=== PATIENT | female | born 1995 | race American Indian/Alaskan Native ===

== ENCOUNTER 2022-06-12 12:16 | Outpatient (CLI) | payer OTHER ==
[2022-06-12 12:47] VITALS: BP 120/81
--- NOTE | 2022-06-12 15:20 | Ultrasound Report ---
ULTRASOUND BIOPHYSICAL PROFILE INDICATION / CLINICAL INFORMATION: well being. Clinical gestational age of 39 weeks and 4 days. COMPARISON: None available. FINDINGS: Single live intrauterine . MEASUREMENTS: - Biparietal Diameter = 9.6 cm = 39 weeks 1 day - Head Circumference = 34.1 cm = 39 weeks 2 days - Abdominal Circumference = 33.6 cm = 37 weeks 4 days - Femur Length = 7.8 cm = 39 weeks 4 days - Estimated Weight (in grams, if calculated): 3493 TOTAL ULTRASOUND AGE: 38 weeks 6 days. BIOPHYSICAL PROFILE: BREATHING MOVEMENT = 2 GROSS BODY MOVEMENT = 2 TONE = 2 QUALITATIVE AMNIOTIC FLUID VOLUME = 2 TOTAL BIOPHYSICAL SCORE = 8/8 AMNIOTIC FLUID INDEX (cm) = 12.1 PRESENTATION: Cephalic. HEART RATE (beats per minute): 145 IMPRESSION: 1. Single live intrauterine with ultrasound age of 38 weeks and 6 days. Estimated deborah ght of 3493 g. 2. biophysical profile = 8/8 3. Amniotic fluid index is within normal limits, measuring 12.1 cm. Signer Name: Saad Vicente MD Signed: 06/12/2022 3:16 PM Workstation Name: [employer]
== END 2022-06-12 15:37 | disposition home or self-care (01) ==
LOC: TRG 12:16 → APU 12:18 → TRG 15:37
PROVIDERS: ATTEND Obstetrics & Gynecology Gynecology
DX: O26.893 Other specified pregnancy related conditions, third trimester (principal); R10.9 Unspecified abdominal pain; Z3A.39 39 weeks gestation of pregnancy
CPT/HCPCS: 59025; 76816; 76819

== ENCOUNTER 2022-06-13 15:01 | Inpatient (IN) | payer OTHER ==
[2022-06-13] MEDS ORDERED: LOPERAMIDE 2 MG CAP PO PRN (19:40)
[2022-06-13] MEDS ORDERED: ONDANSETRON 4 MG/2 ML INJ IV PRN (19:40)
[2022-06-13] MEDS ORDERED: MINERAL OIL 30 ML ORAL LIQD PO PRN (19:40)
[2022-06-13] MEDS ORDERED: LIDOCAINE (2%) 20 MG/1 ML VIAL 20 ML MDV INFILTRATI ONE (19:40)
[2022-06-13] MEDS ORDERED: miSOPROStol 200 MCG TAB PR PRN (19:40)
[2022-06-13] MEDS ORDERED: ePHEDrine SULFATE 50 MG/1 ML INJ IV PRN (19:40)
[2022-06-13] MEDS ORDERED: OXYTOCIN 10 UNIT/1 ML INJ IM PRN (19:40)
[2022-06-13] MEDS ORDERED: AMPICILLIN/NS 2 GM/100 ML 2 GM/100 ML BAG IV ONE (19:40)
[2022-06-13] MEDS ORDERED: TERBUTALINE 1 MG/1 ML INJ SUB-Q PRN (19:40)
[2022-06-13] MEDS ORDERED: NALOXONE 0.4 MG/1 ML INJ IV PRN (19:40)
[2022-06-13] MEDS ORDERED: BUTORPHANOL 2 MG/1 ML INJ IV PRN (19:40)
[2022-06-13] MEDS ORDERED: NalbUPHINE 10 MG/1 ML INJ IV PRN (19:40)
[2022-06-13] MEDS ORDERED: DINOPROSTONE 10 MG VAG SUPP VG ONE (19:40)
[2022-06-13] MEDS ORDERED: ACETAMINOPHEN 325 MG TAB PO PRN (19:40)
[2022-06-13] MEDS ORDERED: CARBOPROST TROMETHAMINE 250 MCG/1 ML INJ IM PRN (19:40)
[2022-06-13] MEDS ORDERED: LACTATED RINGERS 1,000 ML IV SCH (19:45)
--- NOTE | 2022-06-13 19:52 | History and Physical Report ---
History of Present Illness Date of examination: 06/13/22 Date of admission: 06/13/22 15:01 Chief complaint: Presents for a scheduled induction of labor due to Proteinuria. Denies HAs, visual changes, N&V, and epigastic pain. History of present illness: Care at [facility]; course complicated by +Trichomonas (treated with Negative KVNG); a abnormal 1hour GTT (followed by a normal 3 hour GTT); and persistent Proteinuria throughout the 3rd trimester (24 hour urine 540 on 05/29/22). Co-managed with [facility]. Past History Past Medical History: no pertinent history Past Surgical History: breast surgery [employer] History: trichomonas Family/Genetic History: diabetes (PGM and MGM) Social history: no significant social history - Obstetrical History Expected Date of Delivery: 06/15/22 Actual Gestation: 39 Week(s) 5 Day(s) : 1 Medications and Allergies Allergies Allergy/AdvReac Type Severity Reaction Status Date / Time Latex, Natural Rubber AdvReac Severe Rash Verified 06/12/22 12:44 Active Meds: Active Medications Acetaminophen (Acetaminophen 325 Mg Tab) 650 mg PO Q4H PRN PRN Reason: Pain, Mild (1-3) Butorphanol Tartrate (Butorphanol 2 Mg/1 Ml Inj) 2 mg IV Q2H PRN PRN Reason: Pain , Severe (7-10) Carboprost Tromethamine (Carboprost Tromethamine 250 Mcg/1 Ml Inj) 250 mcg IM ONCE PRN PRN Reason: Uterine Bleeding Dinoprostone (Dinoprostone 10 Mg Vag Supp) 10 mg VG ONCE ONE Stop: 06/13/22 19:41 Ephedrine Sulfate (Ephedrine Sulfate 50 Mg/1 Ml Inj) 10 mg IV Q2M PRN PRN Reason: Hypotension Lactated Ringer's (Lactated Ringers) 1,000 mls @ 125 mls/hr IV DIRECT SOL Oxytocin/Sodium Chloride (Pitocin/Ns 30 Unit/500ml) 30 units in 500 mls @ 40 mls/hr IV TITR SOL; Protocol Ampicillin Sodium (Ampicillin/Ns 2 Gm/100 Ml) 2 gm in 100 mls @ 100 mls/hr IV ONCE ONE; Protocol Stop: 06/13/22 20:39 Ampicillin Sodium (Ampicillin/Ns 1 Gm/50 Ml) 1 gm in 50 mls @ 100 mls/hr IV Q4H SOL; Protocol Lidocaine (Lidocaine (2%) 20 Mg/1 Ml Vial 20 Ml Mdv) 20 ml INFILTRATI ONCE ONE Stop: 06/13/22 19:41 Loperamide HCl (Loperamide 2 Mg Cap) 2 mg PO ONCE PRN PRN Reason: give with Hemabate Mineral Oil (Mineral Oil 30 Ml Oral Liqd) 30 ml PO QHS PRN PRN Reason: Constipation Misoprostol (Misoprostol 200 Mcg Tab) 800 mcg KS ONCE PRN PRN Reason: Uterine Bleeding Nalbuphine HCl (Nalbuphine 10 Mg/1 Ml Inj) 10 mg IV Q2H PRN PRN Reason: Pain, Moderate (4-6) Naloxone HCl (Naloxone 0.4 Mg/1 Ml Inj) 0.1 mg IV Q2MIN PRN PRN Reason: Res Rate </= 8 or 02 SAT < 92% Ondansetron HCl (Ondansetron 4 Mg/2 Ml Inj) 4 mg IV Q8H PRN PRN Reason: Nausea And Vomiting Oxytocin (Oxytocin 10 Unit/1 Ml Inj) 10 unit IM ONCE PRN PRN Reason: Uterine Bleeding Terbutaline Sulfate (Terbutaline 1 Mg/1 Ml Inj) 0.25 mg SUB-Q ONCE PRN PRN Reason: Hyperstimulation/Hypertonicity Review of Systems All systems: negative - Vital Signs Vital signs: Vital Signs Temp Resp Pulse Ox 98.2 F 14 100 06/13/22 19:17 06/13/22 19:17 06/13/22 19:17 Temp Pulse Resp BP Pulse Ox 98.2 F 78 14 114/71 100 06/13/22 19:17 06/13/22 19:40 06/13/22 19:17 06/13/22 19:40 06/13/22 19:17 - Physical Exam Breasts: Positive: normal Cardiovascular: Regular rate Lungs: Positive: Clear to auscultation, Normal air movement Abdomen: Positive: normal appearance, soft, normal bowel sounds Genitourinary (Female): Positive: normal external genitalia, normal perenium Vagina: Positive: normal moisture Uterus: Positive: enlarged Anus/Rectum: Positive: normal perianal skin Extremities: Positive: normal - Obstetrical FHR: category 1 Uterine Contraction Monitor Mode: External Cervical Dilatation: 3 (intact) Cervical Effacement Percentage: 50 station: -4 Uterine Contraction Pattern: Absent Uterine Tone Measurement Phase: Resting Results All other labs normal. Assessment and Plan A: IUP @ 39 5/7 Weeks Category I Tracing Maternal Obesity Proteinuria GBS Unknown P: Admit to L&D Per Routine Orders PIH Labs Cervidil Induction GBS Prophylaxis
[2022-06-13] MEDS ORDERED: OXYTOCIN DRIP 30 UNITS/500 ML BAG IV SCH (20:00)
[2022-06-13 20:29] LABS: Red Blood Count 3.89 M/mm3 (3.65-5.03)
[2022-06-13 20:30] LABS: Hematocrit 33.6 % (30.3-42.9); Hemoglobin 11.1 gm/dl (10.1-14.3); Mean Corpuscular HGB Conc 33 % (30-34); Mean Corpuscular Volume 86 fl (79-97); Platelet Count 280 K/mm3 (140-440); Red Cell Distribution Width 13.9 % (13.2-15.2)
[2022-06-13 21:39] LABS: Alanine Aminotransferase 12 units/L (7-56); Uric Acid 6.5 mg/dL (3.5-7.6)
[2022-06-13] MEDS ORDERED: AMPICILLIN/NS 1 GM/50 ML 1 GM/50 ML BAG IV SCH (23:45)
--- NOTE | 2022-06-14 10:00 | Progress Note ---
Assessment and Plan A: IUP@ 39 6/7 wks GBS unknown Preeclampsia P: Continue monitoring Cervidil out @ 10 am GBS protocal in active labor Anticipate Subjective - Subjective Date of service: 06/14/22 Principal diagnosis: IUP@39 6/7 wks Patient reports: movement normal, contractions Objective - Vital Signs Vital Signs: Vital Signs - 12hr 06/13/22 06/13/22 06/13/22 22:08 22:13 22:18 Temperature Pulse Rate 78 81 79 Respiratory Rate Blood Pressure Blood Pressure [Left] O2 Sat by Pulse 98 97 97 Oximetry O2 Sat by Pulse Oximetry [ Bilateral] 06/13/22 06/13/22 06/13/22 22:23 22:28 22:33 Temperature Pulse Rate 81 80 82 Respiratory Rate Blood Pressure Blood Pressure [Left] O2 Sat by Pulse 96 97 96 Oximetry O2 Sat by Pulse Oximetry [ Bilateral] 06/13/22 06/13/22 06/13/22 22:38 22:41 22:43 Temperature Pulse Rate 85 82 95 H Respiratory Rate Blood Pressure 118/56 Blood Pressure [Left] O2 Sat by Pulse 96 98 Oximetry O2 Sat by Pulse Oximetry [ Bilateral] 06/13/22 06/13/22 06/13/22 22:48 22:53 22:58 Temperature Pulse Rate 74 76 76 Respiratory Rate Blood Pressure Blood Pressure [Left] O2 Sat by Pulse 96 97 97 Oximetry O2 Sat by Pulse Oximetry [ Bilateral] 06/13/22 06/13/22 06/13/22 23:03 23:08 23:13 Temperature Pulse Rate 80 76 77 Respiratory Rate Blood Pressure Blood Pressure [Left] O2 Sat by Pulse 97 96 97 Oximetry O2 Sat by Pulse Oximetry [ Bilateral] 06/13/22 06/13/22 06/13/22 23:18 23:23 23:28 Temperature Pulse Rate 76 78 78 Respiratory Rate Blood Pressure Blood Pressure [Left] O2 Sat by Pulse 96 97 97 Oximetry O2 Sat by Pulse Oximetry [ Bilateral] 06/13/22 06/13/22 06/13/22 23:33 23:38 23:43 Temperature Pulse Rate 78 76 75 Respiratory Rate Blood Pressure Blood Pressure [Left] O2 Sat by Pulse 98 96 97 Oximetry O2 Sat by Pulse Oximetry [ Bilateral] 06/13/22 06/13/22 06/13/22 23:48 23:52 23:53 Temperature Pulse Rate 83 79 82 Respiratory Rate Blood Pressure Blood Pressure [Left] O2 Sat by Pulse 97 94 96 Oximetry O2 Sat by Pulse Oximetry [ Bilateral] 06/13/22 06/14/22 06/14/22 23:58 00:02 00:03 Temperature Pulse Rate 84 90 87 Respiratory Rate Blood Pressure Blood Pressure [Left] O2 Sat by Pulse 96 93 95 Oximetry O2 Sat by Pulse Oximetry [ Bilateral] 06/14/22 06/14/22 06/14/22 00:08 00:13 00:18 Temperature Pulse Rate 91 H 84 87 Respiratory Rate Blood Pressure Blood Pressure [Left] O2 Sat by Pulse 94 97 97 Oximetry O2 Sat by Pulse Oximetry [ Bilateral] 06/14/22 06/14/22 06/14/22 00:24 00:29 00:34 Temperature Pulse Rate 96 H 78 82 Respiratory Rate Blood Pressure Blood Pressure [Left] O2 Sat by Pulse 100 99 98 Oximetry O2 Sat by Pulse Oximetry [ Bilateral] 06/14/22 06/14/22 06/14/22 00:39 00:41 00:44 Temperature Pulse Rate 80 79 86 Respiratory Rate Blood Pressure 102/56 Blood Pressure [Left] O2 Sat by Pulse 98 98 Oximetry O2 Sat by Pulse Oximetry [ Bilateral] 06/14/22 06/14/22 06/14/22 00:49 00:54 00:59 Temperature Pulse Rate 78 74 87 Respiratory Rate Blood Pressure Blood Pressure [Left] O2 Sat by Pulse 98 99 99 Oximetry O2 Sat by Pulse Oximetry [ Bilateral] 06/14/22 06/14/22 06/14/22 01:04 01:09 01:14 Temperature Pulse Rate 88 75 78 Respiratory Rate Blood Pressure Blood Pressure [Left] O2 Sat by Pulse 98 98 98 Oximetry O2 Sat by Pulse Oximetry [ Bilateral] 06/14/22 06/14/22 06/14/22 01:19 01:24 01:29 Temperature Pulse Rate 79 89 87 Respiratory Rate Blood Pressure Blood Pressure [Left] O2 Sat by Pulse 98 97 98 Oximetry O2 Sat by Pulse Oximetry [ Bilateral] 06/14/22 06/14/22 06/14/22 01:34 01:39 01:44 Temperature Pulse Rate 84 82 80 Respiratory Rate Blood Pressure Blood Pressure [Left] O2 Sat by Pulse 96 98 96 Oximetry O2 Sat by Pulse Oximetry [ Bilateral] 06/14/22 06/14/22 06/14/22 01:49 01:54 01:59 Temperature Pulse Rate 80 80 84 Respiratory Rate Blood Pressure Blood Pressure [Left] O2 Sat by Pulse 97 98 97 Oximetry O2 Sat by Pulse Oximetry [ Bilateral] 06/14/22 06/14/22 06/14/22 02:04 02:09 02:14 Temperature Pulse Rate 78 76 82 Respiratory Rate Blood Pressure Blood Pressure [Left] O2 Sat by Pulse 99 97 97 Oximetry O2 Sat by Pulse Oximetry [ Bilateral] 06/14/22 06/14/22 06/14/22 02:19 02:24 02:29 Temperature Pulse Rate 84 75 79 Respiratory Rate Blood Pressure Blood Pressure [Left] O2 Sat by Pulse 97 97 96 Oximetry O2 Sat by Pulse Oximetry [ Bilateral] 06/14/22 06/14/22 06/14/22 02:34 02:39 02:41 Temperature Pulse Rate 75 77 75 Respiratory Rate Blood Pressure 125/74 Blood Pressure [Left] O2 Sat by Pulse 97 96 Oximetry O2 Sat by Pulse Oximetry [ Bilateral] 06/14/22 06/14/22 06/14/22 02:44 02:49 02:54 Temperature Pulse Rate 81 73 77 Respiratory Rate Blood Pressure Blood Pressure [Left] O2 Sat by Pulse 96 97 97 Oximetry O2 Sat by Pulse Oximetry [ Bilateral] 06/14/22 06/14/22 06/14/22 02:59 03:04 03:09 Temperature Pulse Rate 76 80 77 Respiratory Rate Blood Pressure Blood Pressure [Left] O2 Sat by Pulse 99 96 95 Oximetry O2 Sat by Pulse Oximetry [ Bilateral] 06/14/22 06/14/22 06/14/22 03:14 03:19 03:24 Temperature Pulse Rate 75 79 76 Respiratory Rate Blood Pressure Blood Pressure [Left] O2 Sat by Pulse 96 96 97 Oximetry O2 Sat by Pulse Oximetry [ Bilateral] 06/14/22 06/14/22 06/14/22 03:29 03:38 03:40 Temperature Pulse Rate 75 80 89 Respiratory Rate Blood Pressure Blood Pressure [Left] O2 Sat by Pulse 98 96 94 Oximetry O2 Sat by Pulse Oximetry [ Bilateral] 06/14/22 06/14/22 06/14/22 03:43 03:48 03:53 Temperature Pulse Rate 80 84 81 Respiratory Rate Blood Pressure Blood Pressure [Left] O2 Sat by Pulse 98 98 97 Oximetry O2 Sat by Pulse Oximetry [ Bilateral] 06/14/22 06/14/22 06/14/22 03:58 04:03 04:08 Temperature Pulse Rate 84 83 82 Respiratory Rate Blood Pressure Blood Pressure [Left] O2 Sat by Pulse 97 98 98 Oximetry O2 Sat by Pulse Oximetry [ Bilateral] 06/14/22 06/14/22 06/14/22 04:13 04:18 04:23 Temperature Pulse Rate 79 77 88 Respiratory Rate Blood Pressure Blood Pressure [Left] O2 Sat by Pulse 98 97 99 Oximetry O2 Sat by Pulse Oximetry [ Bilateral] 06/14/22 06/14/22 06/14/22 04:28 04:33 04:38 Temperature Pulse Rate 75 78 74 Respiratory Rate Blood Pressure Blood Pressure [Left] O2 Sat by Pulse 97 97 97 Oximetry O2 Sat by Pulse Oximetry [ Bilateral] 06/14/22 06/14/22 06/14/22 04:41 04:43 04:48 Temperature Pulse Rate 71 78 76 Respiratory Rate Blood Pressure 124/73 Blood Pressure [Left] O2 Sat by Pulse 98 97 Oximetry O2 Sat by Pulse Oximetry [ Bilateral] 06/14/22 06/14/22 06/14/22 04:53 04:58 04:59 Temperature Pulse Rate 74 77 76 Respiratory Rate Blood Pressure Blood Pressure [Left] O2 Sat by Pulse 94 95 92 Oximetry O2 Sat by Pulse Oximetry [ Bilateral] 06/14/22 06/14/22 06/14/22 05:03 05:04 05:08 Temperature Pulse Rate 75 75 75 Respiratory Rate Blood Pressure Blood Pressure [Left] O2 Sat by Pulse 96 94 92 Oximetry O2 Sat by Pulse Oximetry [ Bilateral] 06/14/22 06/14/22 06/14/22 05:10 05:13 05:15 Temperature Pulse Rate 73 77 74 Respiratory Rate Blood Pressure Blood Pressure [Left] O2 Sat by Pulse 92 90 93 Oximetry O2 Sat by Pulse Oximetry [ Bilateral] 06/14/22 06/14/22 06/14/22 05:18 05:21 05:23 Temperature Pulse Rate 69 75 71 Respiratory Rate Blood Pressure Blood Pressure [Left] O2 Sat by Pulse 98 94 98 Oximetry O2 Sat by Pulse Oximetry [ Bilateral] 06/14/22 06/14/22 06/14/22 05:28 05:33 05:38 Temperature Pulse Rate 73 70 72 Respiratory Rate Blood Pressure Blood Pressure [Left] O2 Sat by Pulse 97 97 97 Oximetry O2 Sat by Pulse Oximetry [ Bilateral] 06/14/22 06/14/22 06/14/22 05:43 05:48 05:53 Temperature Pulse Rate 76 81 83 Respiratory Rate Blood Pressure Blood Pressure [Left] O2 Sat by Pulse 96 98 99 Oximetry O2 Sat by Pulse Oximetry [ Bilateral] 06/14/22 06/14/22 06/14/22 05:58 06:00 06:03 Temperature Pulse Rate 71 73 76 Respiratory Rate Blood Pressure Blood Pressure [Left] O2 Sat by Pulse 97 92 95 Oximetry O2 Sat by Pulse Oximetry [ Bilateral] 06/14/22 06/14/22 06/14/22 06:07 06:08 06:13 Temperature Pulse Rate 68 80 72 Respiratory Rate Blood Pressure Blood Pressure [Left] O2 Sat by Pulse 94 96 95 Oximetry O2 Sat by Pulse Oximetry [ Bilateral] 06/14/22 06/14/22 06/14/22 06:18 06:23 06:28 Temperature Pulse Rate 70 72 71 Respiratory Rate Blood Pressure Blood Pressure [Left] O2 Sat by Pulse 98 97 98 Oximetry O2 Sat by Pulse Oximetry [ Bilateral] 06/14/22 06/14/22 06/14/22 06:33 06:38 06:41 Temperature Pulse Rate 67 70 72 Respiratory Rate Blood Pressure 126/72 Blood Pressure [Left] O2 Sat by Pulse 97 98 Oximetry O2 Sat by Pulse Oximetry [ Bilateral] 06/14/22 06/14/22 06/14/22 06:43 06:48 06:53 Temperature Pulse Rate 70 68 71 Respiratory Rate Blood Pressure Blood Pressure [Left] O2 Sat by Pulse 97 98 97 Oximetry O2 Sat by Pulse Oximetry [ Bilateral] 06/14/22 06/14/22 06/14/22 06:58 07:03 07:08 Temperature Pulse Rate 70 74 71 Respiratory Rate Blood Pressure Blood Pressure [Left] O2 Sat by Pulse 98 96 96 Oximetry O2 Sat by Pulse Oximetry [ Bilateral] 06/14/22 06/14/22 06/14/22 07:12 07:13 07:18 Temperature Pulse Rate 85 69 74 Respiratory Rate Blood Pressure Blood Pressure [Left] O2 Sat by Pulse 91 98 96 Oximetry O2 Sat by Pulse Oximetry [ Bilateral] 06/14/22 06/14/22 06/14/22 07:23 07:24 07:28 Temperature Pulse Rate 71 72 74 Respiratory Rate Blood Pressure Blood Pressure [Left] O2 Sat by Pulse 97 94 97 Oximetry O2 Sat by Pulse Oximetry [ Bilateral] 06/14/22 06/14/22 06/14/22 07:33 07:38 07:43 Temperature Pulse Rate 89 71 80 Respiratory Rate Blood Pressure Blood Pressure [Left] O2 Sat by Pulse 97 98 98 Oximetry O2 Sat by Pulse Oximetry [ Bilateral] 06/14/22 06/14/22 06/14/22 07:44 07:59 08:01 Temperature Pulse Rate 81 83 80 Respiratory Rate Blood Pressure 169/95 Blood Pressure [Left] O2 Sat by Pulse 91 98 Oximetry O2 Sat by Pulse Oximetry [ Bilateral] 06/14/22 06/14/22 06/14/22 08:03 08:04 08:07 Temperature 98 F Pulse Rate 78 86 Respiratory 16 Rate Blood Pressure 120/74 Blood Pressure 120/74 [Left] O2 Sat by Pulse 97 Oximetry O2 Sat by Pulse 97 Oximetry [ Bilateral] 06/14/22 06/14/22 06/14/22 08:09 08:14 08:19 Temperature Pulse Rate 87 91 H 71 Respiratory Rate Blood Pressure Blood Pressure [Left] O2 Sat by Pulse 99 96 97 Oximetry O2 Sat by Pulse Oximetry [ Bilateral] 06/14/22 06/14/22 06/14/22 08:23 08:24 08:29 Temperature Pulse Rate 83 85 84 Respiratory Rate Blood Pressure Blood Pressure [Left] O2 Sat by Pulse 94 96 99 Oximetry O2 Sat by Pulse Oximetry [ Bilateral] 06/14/22 06/14/22 06/14/22 08:32 08:34 08:37 Temperature Pulse Rate 76 85 87 Respiratory Rate Blood Pressure Blood Pressure [Left] O2 Sat by Pulse 94 94 94 Oximetry O2 Sat by Pulse Oximetry [ Bilateral] 06/14/22 06/14/22 06/14/22 08:39 08:41 08:43 Temperature Pulse Rate 84 88 82 Respiratory Rate Blood Pressure 120/83 Blood Pressure [Left] O2 Sat by Pulse 95 94 Oximetry O2 Sat by Pulse Oximetry [ Bilateral] 06/14/22 06/14/22 06/14/22 08:44 08:48 08:49 Temperature Pulse Rate 89 86 73 Respiratory Rate Blood Pressure Blood Pressure [Left] O2 Sat by Pulse 95 94 96 Oximetry O2 Sat by Pulse Oximetry [ Bilateral] 06/14/22 08:54 Temperature Pulse Rate 75 Respiratory Rate Blood Pressure Blood Pressure [Left] O2 Sat by Pulse 98 Oximetry O2 Sat by Pulse Oximetry [ Bilateral] - Exam Breasts: normal Abdomen: Present: normal appearance, soft, normal bowel sounds Vulva: both: normal Uterus: Present: normal FHR: auscultation normal, category 1 Uterine Contraction Monitor Mode: External Uterine Contraction Pattern: Irregular Uterine Tone Measurement Phase: Resting Uterine Contraction Intensity: Mild Extremities: normal - Labs Labs: Abnormal Labs 06/13/22 20:04 Creatinine 0.5 L Lactate Dehydrogenase 204 H Laboratory Results - last 24 hr 06/13/22 06/13/22 06/13/22 20:04 20:04 20:04 WBC 9.4 RBC 3.89 Hgb 11.1 Hct 33.6 MCV 86 MCH 29 MCHC 33 RDW 13.9 Plt Count 280 Creatinine 0.5 L Estimated GFR > 60 Uric Acid 6.5 AST 14 ALT 12 Lactate Dehydrogenase 204 H Blood Type O POSITIVE Antibody Screen Negative
[2022-06-14] MEDS: OXYTOCIN DRIP 30 UNITS/500 ML BAG IV SCH ×4 (15:05→18:25)
[2022-06-14 15:14] VITALS: BP 124/83
--- NOTE | 2022-06-14 17:10 | Anesthesia Day of Surgery ---
Anesthesia Day of Surgery - Day of Surgery Patient Examined: Yes Patient H&P Reviewed: Yes Patient is NPO: Yes Beta Blockers: No Cardiac Clearance: No Pulmonary Clearance: No Pk's Test: N/A
--- NOTE | 2022-06-14 17:10 | Anesthesia Consultation ---
Anesthesia Consult and Med Hx Date of service: 06/14/22 - Airway Anesthetic Teeth Evaluation: Good ROM Head & Neck: Adequate Mental/Hyoid Distance: Adequate Mallampati Class: Class II Intubation Access Assessment: Probably Good - Pulmonary Exam CTA: Yes - Cardiac Exam Cardiac Exam: RRR - Pre-Operative Health Status ASA Pre-Surgery Classification: ASA3 Proposed Anesthetic Plan: Epidural - Pulmonary Hx Smoking: No Hx Asthma: No Hx Respiratory Symptoms: No SOB: No COPD: No Home Oxygen Therapy: No Hx Pneumonia: No Hx Sleep Apnea: No - Cardiovascular System Hx Hypertension: No Hx Coronary Artery Disease: No Hx Heart Attack/AMI: No Hx Angina: No Hx Percutaneous Transluminal Coronary Angioplasty (PTCA): No Hx Cardia Arrhythmia: No Hx Pacemaker: No Hx Internal Defibrillator: No Hx Valvular Heart Disease: No Hx Heart Murmur: No Hx Peripheral Vascular Disease: No - Central Nervous System Hx Neuromuscular Disorder: No Hx Seizures: No CVA: No Hx Back Pain: No Hx Psychiatric Problems: No - Gastrointestinal Hx Ulcer: No Hx Gastroesophageal Reflux Disease: No - Endocrine Hx Renal Disease: No Hx End Stage Renal Disease: No Hx Cirrhosis: No Hx Liver Disease: No Hx Insulin Dependent Diabetes: No Hx Non-Insulin Dependent Diabetes: No Hx Thyroid Disease: No Hx Hypothyroidism: No Hx Hyperthyroidism: No - Hematic Hx Anemia: No Hx Sickle Cell Disease: No - Other Systems Hx Alcohol Use: No Hx Substance Use: No Hx Cancer: No Hx Obesity: Yes
--- NOTE | 2022-06-14 17:10 | Progress Note ---
Labor Epidural - Labor Epidural Start Time: 16:25 Stop Time: 16:40 Performed by:: ELINOR PARADA Procedure: Epidural Requested for Labor Pain. H&P and PT Chart reviewed and consent obtained. Time out performed and the procedure was explained, all questions answered. Patient was placed in a sitting position with monitors applied. The PTs back was prepped and draped in usual sterile fashion. The Skin was localized with 3 mL of 1% lidocaine at L3-L4. A 17-gauge Touhy epidural needle was advanced to JAMES with saline at 7 cm and no blood/CSF was noted via epidural needle. Epidural catheter was advanced to 12 cm. There was negative aspiration for blood and CSF in the catheter and negative response to a test dose of 3 ml 1.5% lidocaine w/ Epi and a sterile dressing was applied Patient tolerated the procedure well and there were no immediate complications noted.
[2022-06-14] MEDS ORDERED: NALOXONE 0.4 MG/1 ML INJ IV PRN (18:00)
[2022-06-14] MEDS ORDERED: ePHEDrine SULFATE 50 MG/1 ML INJ IV PRN (18:00)
[2022-06-14] MEDS ORDERED: fentaNYL-BUPIV 2 MCG/ML-0.125% 200 MCG/100 ML BAG EPIDURAL SCH (18:00)
--- NOTE | 2022-06-14 18:57 | Event Note ---
Date: 06/14/22 Called to by nurse stating pt was having decelarations after her epidural was placed. Pt to [facility], Pitocin was turned off, O2 was applied and an IFM was placed. After appropriate resuscitative efforts, a CAT I FHT was noted. Dr Rice was notified. Will restart Pitocin in 30 min.
--- NOTE | 2022-06-14 19:00 | Event Note ---
Date: 06/14/22 S: Feeling better O: IUPC placed. 1, Pit off currently, Cat I tracing A: Induction of labor for GHTN P: Continue to augment as needed
[2022-06-14] MEDS ORDERED: BUPIVACAINE/PF (0.25%) 2.5 MG/ML 10 ML VIAL INFILTRATI ONE (19:41)
[2022-06-14] MEDS ORDERED: LIDOCAINE MPF (2%) 20 MG/1 ML VIAL 5 ML ONE (19:41)
--- NOTE | 2022-06-14 20:56 | Event Note ---
Date: 06/14/22 S: Epidural is working better O: /0, Having repetitive late decelerations despite position changes, CAT 2 tracing A: 39.6 weeks intolerance of labor P: Discussed with Dr. Rice will evaluate for
[2022-06-14] MEDS ORDERED: BICITRA ORAL LIQD 30ML PO ONE (21:20)
[2022-06-14] MEDS ORDERED: METOCLOPRAMIDE 10 MG/2 ML INJ IV ONE (21:20)
[2022-06-14] MEDS ORDERED: FAMOTIDINE 20 MG/2 ML INJ IV ONE ×2 (21:20→21:35)
[2022-06-14] MEDS ORDERED: BICITRA ORAL LIQD 30ML ONE (21:35)
[2022-06-14] MEDS ORDERED: METOCLOPRAMIDE 10 MG/2 ML INJ ONE (21:35)
[2022-06-14] MEDS ORDERED: ceFAZolin/Water 2 GM/20 ML 2 GM/20 ML SYRINGE IV NR (22:00)
[2022-06-14 22:03] LABS: Basophils # (Auto) 0.1 K/mm3 (0.0-0.1); Basophils % (Auto) 0.4 % (0.0-1.8); Eosinophils % (Auto) 0.1 % (0.0-4.3); Hemoglobin 10.9 gm/dl (10.1-14.3); Lymphocytes # (Auto) 1.2 K/mm3 (1.2-5.4); Lymphocytes % (Auto) 8.9 % (13.4-35.0); Mean Corpuscular HGB Conc 33 % (30-34); Mean Corpuscular Volume 86 fl (79-97); Monocytes # (Auto) 1.1 K/mm3 (0.0-0.8); Monocytes % (Auto) 8.5 % (0.0-7.3); Platelet Count 255 K/mm3 (140-440); Red Blood Count 3.84 M/mm3 (3.65-5.03); Red Cell Distribution Width 13.8 % (13.2-15.2)
== END 2022-06-14 23:39 | disposition home or self-care (01) | DRG 775 ==
LOC: LD 15:01
PROVIDERS: ADMIT Obstetrics & Gynecology Gynecology; ATTEND Obstetrics & Gynecology Gynecology
DX: O77.9 Labor and delivery complicated by fetal stress, unspecified (principal); Z37.0 Single live birth; O99.214 Obesity complicating childbirth; O12.14 Gestational proteinuria, complicating childbirth; O14.94 Unspecified pre-eclampsia, complicating childbirth; Z20.822 Contact with and (suspected) exposure to COVID-19; Z3A.39 39 weeks gestation of pregnancy; Z83.3 Family history of diabetes mellitus; Z91.040 Latex allergy status; Z91.048 Other nonmedicinal substance allergy status
CPT/HCPCS: 36415; 59025; 76816; 76819; 82565; 83615; 84450; 84460; 84550; 85014; 85018; 85025; 85027; 86850; 86900; 86901; G0378; J0290; J2590; J7120; U0003